=== PATIENT | male | born 1975 | race Caucasian/White ===

== ENCOUNTER 2025-04-12 10:27 | Emergency (ER) | payer OTHER ==
[2025-04-12] MEDS ORDERED: Sodium Chloride 0.9% 1,000 ML ONE (10:59)
[2025-04-12 11:06] LABS: Bilirubin Negative (Negative); Blood, Urine Trace (Negative); Glucose, Urine (Dipstick) Negative (Negative); Ketone, Urine Negative (Negative); Leukocyte Negative (Negative); Nitrite Negative (Negative); Protein, Urine (Dipstick) 30 mg/dL (Neg-Trace); Specific Gravity, Urine 1.025 (1.005-1.030); Urobilinogen 0.2 mg/dL (Less than 2); pH, Urine 5.5 (5.0-9.0)
[2025-04-12] MEDS ORDERED: Acetaminophen 325 MG TAB ONE (11:11)
[2025-04-12] MEDS ORDERED: Morphine 4 MG/ML VIAL ONE ×2 (11:12→12:15)
[2025-04-12] MEDS ORDERED: Promethazine HCl 25 MG/ML VIAL ONE (11:12)
[2025-04-12 11:14] LABS: Anion Gap 17 mmol/L (10-20); BUN (Urea Nitrogen) 21 mg/dL (8.9-20.6); Calc. Creatinine Clearance 0 mL/min (70-130); Calcium 9.1 mg/dL (7.8-10.44); Carbon Dioxide 18 mmol/L (22-29); Chloride 112 mmol/L (98-107); Estimated GFR 54; Glucose 104 mg/dL (70-105); Potassium 3.6 mmol/L (3.5-5.1); Sodium 143 mmol/L (136-145)
[2025-04-12 11:19] LABS: CAUTI Indications for Culture Pelvic or flank pain; Clarity Hazy (Clear); RBC/HPF 0-3 HPF (0-3); Squamous Epithelial 0-3 HPF (0-3); WBC/HPF 0-3 HPF (0-3)
[2025-04-12 11:21] LABS: Urine Culture Reflex No No
[2025-04-12 11:22] LABS: #Basophils 0.1 thou/uL (0.0-0.2); #Eosinophils 0.5 thou/uL (0.0-0.7); #Lymphocytes 2.2 thou/uL (1.20-3.40); #Monocytes 1.3 thou/uL (0.11-0.59); #Neutrophils 3.4 thou/uL (1.40-6.50); %Basophils 1.5 % (0.0-1.0); %Eosinophils 7.3 % (0.0-10.0); %Monocytes 16.9 % (0.0-10.0); %Neutrophils 45.4 % (42.0-75.0); Hemoglobin 10.3 g/dL (14.0-18.0); Mean Corpuscular HGB CONC 35.7 g/dL (32.0-36.0); Mean Corpuscular Hemoglobin 29.2 pg (27.0-31.0); Mean Corpuscular Volume 81.7 fl (78.0-98.0); Mean Platelet Volume 6.3 fL (7.4-10.4); Platelet Count 451 10x3/uL (130-400); RBC Distribution Width 12.9 % (11.5-14.5); Red Blood Cell (RBC) Count 3.55 mill/uL (4.70-6.10); White Blood Cell (WBC) Count 7.5 10x3/uL (4.8-10.8)
[2025-04-12] MEDS ORDERED: Cephalexin 500 MG CAP ONE (12:22)
== END 2025-04-12 12:40 | disposition home or self-care (01) ==
LOC: NAV ERS 10:27
DX: N20.2 Calculus of kidney with calculus of ureter (principal); D64.9 Anemia, unspecified; I12.9 Hypertensive chronic kidney disease with stage 1 through stage 4 chronic kidney disease, or unspecified chronic kidney disease; N18.1 Chronic kidney disease, stage 1
CPT/HCPCS: 83605; 87086; 96361; 96365; 96375; 96376; J2270; J2550; J7030